=== PATIENT | male | born 1985 | race Hispanic/Latino ===

== ENCOUNTER 2021-11-15 11:08 | Emergency (ER) | payer OTHER ==
[~2021-11-15] VITALS: Ht 165.1 cm; Wt 78.0 kg
== END 2021-11-15 16:18 | disposition home or self-care (01) ==
LOC: FSED 12:00
DX: R06.02 Shortness of breath (principal); J30.9 Allergic rhinitis, unspecified
CPT/HCPCS: 71046; 80053; 82553; 83880; 84484; 85025; 85379; 93005; 99283